=== PATIENT | male | born 1985 | race Hispanic/Latino ===

== ENCOUNTER 2017-06-24 02:30 | Emergency (ER) | payer SELFPAY ==
[~2017-06-24] VITALS: Ht 172.7 cm; Wt 85.7 kg
== END 2017-06-24 03:03 | disposition home or self-care (01) ==
LOC: ER 02:30 → EDSEX 02:30 → ER 03:03
DX: M54.6 Pain in thoracic spine (principal); S23.3XXA Sprain of ligaments of thoracic spine, initial encounter; M54.5 Low back pain; V43.62XA Car passenger injured in collision with other type car in traffic accident, initial encounter; Y92.488 Other paved roadways as the place of occurrence of the external cause
CPT/HCPCS: 99282

== ENCOUNTER → 2018-07-01 | Day surgery (SDC) | payer OTHER ==
[~2018-07-01] MED LIST: BELLADONNA/OPIUM 30 MG SUPP RC ONE; CEFTRIAXONE SOD 1 GM/NS 50 ML 50 ML IV ONE; DEXAMETHASONE SOD PHOS INJ 4 MG/ML VIAL ONE; FENTANYL CITRATE/PF 100MCG/2 ML INJ ONE; IOPAMIDOL 610MG/1ML 300 MG/ML VIAL IV ONE; KETOROLAC TROMETHAMINE 30 MG/ML VIAL ONE; LIDOCAINE HCL 2% LOCAL INJ 5 ML SDV VIAL INJ ONE; MIDAZOLAM HCL 2 MG/2 ML VIAL ONE; ONDANSETRON HCL INJ 2MG/ML 2ML 2 MG/ML VIAL ONE; PROPOFOL IV EMULSION 10 MG/ML 20 ML VIAL ONE; SEVOFLURANE INHAL SOLN 250 ML PEN BTL ONE; TYLENOL WITH C1 EACH PO
--- OUTSIDE RECORDS SUMMARY | 2018-07-01 05:22 | XMS REPORT ---
Author Author [facility] Address Unknown Phone Unavailable Care Team Providers Care Enterprise Business [employer] Name Role Phone Unavailable Unavailable Payers Payer Name Policy Type Policy Number Effective Date Expiration Date Problems This patient has no known problems. Allergies, Adverse Reactions, Alerts Allergy Name Allergy Type Status Severity Reaction(s) Onset Date Inactive Date Treating Clinician Comments No Known Allergies DA Active U 2011-07-26 00:00:00 Medications This patient has no known medications.
[2018-07-01 06:31] LABS: BASOPHILS # (AUTO) 0.1 (0.0-0.1); EOSINOPHILS # (AUTO) 0.4 (0.0-0.4); EOSINOPHILS % 4.5 % (0.0-6.0); HEMATOCRIT 46.8 % (38.2-49.6); HEMOGLOBIN 15.8 g/dL (14.0-18.0); LYMPHOCYTES # (AUTO) 2.7 (1.0-3.2); MEAN CORPUSCULAR HEMOGLOBIN 29.4 pg (28-32); MEAN CORPUSCULAR HGB CONC 33.8 g/dL (31-35); MEAN CORPUSCULAR VOLUME 87.2 fL (81-99); MONOCYTES # (AUTO) 0.5 (0.2-0.8); MONOCYTES % 6.2 % (4.4-11.3); NEUTROPHILS # (AUTO) 4.1 (2.1-6.9); NEUTROPHILS % 53.2 % (38.7-80.0); PLATELET COUNT 225 x10e3/uL (140-360); RED BLOOD COUNT 5.37 x10e6/uL (4.3-5.7); RED CELL DISTRIBUTION WIDTH 13.1 % (11.7-14.4)
[2018-07-01 06:51] LABS: BLOOD UREA NITROGEN 14 mg/dL (7-26); BUN/CREATININE RATIO 14 (6-25); CALCIUM 9.1 mg/dL (8.4-10.2); CARBON DIOXIDE 25 mmol/L (22-29); CHLORIDE 109 mmol/L (98-107); CREATININE, SERUM 1.02 mg/dL (0.72-1.25); EST GLOMERULAR FILTRATION RATE > 60 ML/MIN (60-); GLUCOSE 104 mg/dL (74-118); SODIUM 143 mmol/L (136-145)
--- NOTE | 2018-07-01 06:54 | Diagnostic Imaging Report ---
ABDOMEN-1VIEW (KUB) Clinical history: Stones, preop Technique: AP view abdomen Comparison: None Findings: Nonobstructive bowel gas pattern. Moderate overlying stool burden. No definite radiopaque stones seen over the expected kidneys or ureters. Impression: No definite stones seen radiographically. Signed by: Dr Rossi Chang MD on 07/01/2018 6:51 AM
[2018-07-01 08:30] VITALS: BP 132/93
--- NOTE | 2018-08-12 08:02 | Operative Report ---
DATE OF PROCEDURE: 07/01/2018 SURGEON: Saul Salinas MD PREOPERATIVE DIAGNOSIS: Gross hematuria. POSTOPERATIVE DIAGNOSES: 1. Gross hematuria. 2. Urethral stricture disease. OPERATIONS PERFORMED: 1. Cystourethroscopy with calibration and dilation of urethral stricture (Performed for the diagnosis of stricture). 2. Cystourethroscopy with bilateral ureteral catheterization and retrograde ureteropyelography (Performed for the hematuria). 3. Interpretation of retrograde ureteropyelography. 4. Supervision of fluoroscopy, no radiologist was present. ANESTHESIA: General. COMPLICATIONS: None. CLINICAL SUMMARY: Rogelio Roca is a 32-year-old man with hematuria. He is brought to the operating room for the above procedures. Stones were identified in bilateral lower poles on prior imaging and we planned to evaluate those as well. He is aware of the risks of bleeding, infection, injury to the adjacent structures, and need for additional procedures, and elected to proceed. PROCEDURE IN DETAIL: Informed consent was verified. Rogelio Roca was properly identified, taken to the operating room, and placed on the cystoscopy table in the supine position. Anesthesia was uneventfully begun. The patient was then carefully and gently repositioned in the dorsal lithotomy position with all pressure points well padded. His genitalia were prepared and draped in the usual sterile fashion. A 22.5-Mozambican cystoscope sheath with an obturator in place was attempted to be placed into the patient's urethra. It was not able to be passed by the fossa navicularis. We calibrated the fossa navicularis with approximately 18-Mozambican in size and progressively dilated it to 26-Mozambican in size. This allowed us to easily place the cystoscope sheath into the patient's urethra and it was guided down the urethra under direct vision. It was guided to the normal sphincteric region through the prostatic bed significant for showing minimal amount of obstruction, but no significant BPH that would need intervention at this time. We entered the patient's bladder. Panendoscopy revealed no suspicious mucosal lesions. No tumors, no stones, and no diverticula. Normally positioned and configured ureteral orifices were identified. An 8-Mozambican catheter was used to cannulate the each ureter and retrograde ureteropyelograms were performed. Interpretation of Retrograde Ureteropyelography: Contrast was instilled in a retrograde fashion bilaterally. There were no tumors, no stones, and no diverticula. Unobstructed drainage was observed bilaterally fluoroscopically. We were not able to visualize the stones noted on prior radiographic imaging. The patient's bladder was then drained and cystoscope was withdrawn. Belladonna and Opium suppository was placed revealing a 20 g prostate, smooth, , and without any nodules. The patient was then uneventfully reversed from anesthesia and taken to the recovery room in stable condition. There were no complications during the procedure. He tolerated the procedure well. Exclusive postoperative instructions were given. We will plan on following the patient up in the office in approximately 1 month. We also plan on following the patient's small nephrolithiasis and working them up as needed. MD SAÚL Hill/BOBBY /[id number]
== END | disposition home or self-care (01) ==
LOC: OR 05:19
PROVIDERS: ATTEND Urology
DX: N20.0 Calculus of kidney (principal); R31.0 Gross hematuria; N35.919 Unspecified urethral stricture, male, unspecified site
CPT/HCPCS: 36415; 52281; 74018; 74420; 80048; 83970; 84550; 85025; C1758; J0696; J1100; J1885; J2001; J2250; J2405; J2704; Q9967